=== PATIENT | female | born 1960 | race Caucasian/White ===

== ENCOUNTER 2018-04-23 20:11 | Emergency (ER) | payer MEDICAID, OTHER ==
--- NOTE | 2018-04-23 20:27 | EDPHY ---
H & P Stated Complaint: loose stools since 03/02 Time Seen by Provider: 04/23/18 20:20 HPI/ROS: CHIEF COMPLAINT: Chronic diarrhea HISTORY OF PRESENT ILLNESS: The patient presents the ED with complaints of chronic watery diarrhea for the past 6 weeks. She was seen at [facility]. She had a negative stool culture and ova and parasite analysis. She is still awaiting results of Clostridium difficile colitis. She does have a history of ulcerative colitis which she reports is well controlled with diet. She has not had recent follow-up with Gastroenterology. She denies any vomiting, melena or hematemesis. She did try to take Imodium however was bothered secondary to side effects of the medication. She has been taking Pepto-Bismol without any acute improvement of her symptoms. She denies any fever, dysuria, cough or additional acute complaints. REVIEW OF SYSTEMS: A comprehensive 10 point review of systems is otherwise negative aside from elements mentioned in the history of present illness. Source: Patient - Personal History Current Tetanus/Diphtheria Vaccine: Unsure Current Tetanus Diphtheria and Acellular Pertussis (TDAP): Unsure Tetanus Vaccine Date: < 10 - Medical/Surgical History Hx Asthma: No Hx Chronic Respiratory Disease: No Hx Diabetes: No Hx Cardiac Disease: No Hx Renal Disease: No Hx Cirrhosis: No Hx Alcoholism: No Hx HIV/AIDS: No Hx Splenectomy or Spleen Trauma: No Other PMH: FIBRO M., MIGRAINES, COLITIS, APPY - Social History Smoking Status: Never smoked - Physical Exam Exam: General Appearance: Alert, no distress Eyes: Pupils equal and round no pallor or injection ENT, Mouth: Mucous membranes moist Respiratory: There are no retractions, lungs are clear to auscultation Cardiovascular: Regular rate and rhythm Gastrointestinal: Hyperactive bowel sounds, no focal tenderness Neurological: 5/5 strength all 4 extremities Skin: Warm and dry, no rashes Musculoskeletal: Neck is supple nontender Extremities: symmetrical, full range of motion Constitutional: Initial Vital Signs Temperature (C) 36.6 C 04/23/18 20:18 Heart Rate 97 04/23/18 20:18 Respiratory Rate 16 04/23/18 20:18 Blood Pressure 124/67 H 04/23/18 20:18 O2 Sat (%) 95 04/23/18 20:18 O2 Delivery Mode Room Air Allergies/Adverse Reactions: Penicillins Allergy (Intermediate, Verified 04/23/18 20:18) Hives Home Medications: Medication Instructions Recorded Levothyroxine [Synthroid 112 mcg 112 mcg PO DAILY06 11/27/12 (RX)] Progesterone,Micronized 300 mg PO 11/27/12 [Progesterone] Cholecalciferol (Vitamin D3) 08/11/13 [Vitamin D-3] [place]-3 Fatty Acids [Fish Oil] 300 mg PO 08/11/13 Vitamin B Complex [Vitamin B 08/11/13 Complex (OTC)] Dicyclomine [Bentyl 20 MG (*)] 20 mg PO QID #30 tab 04/23/18 Medical Decision Making ED Course/Re-evaluation: The patient presents the emergency department with complaints of chronic diarrhea. She is afebrile with stable vital signs. The patient's abdominal examination is benign. The patient did received 2 L of normal saline at her request for subjective dehydration. Laboratory studies are unremarkable. Patient was unable to provide a diarrheal sample in the ED. She will be discharged home with a specimen container and a lab slip for a GI pathogen panel. The patient will follow up with Gastroenterology for any ongoing symptoms. She is given the telephone number for Dr. Antonio Linda. Additionally the patient will be given a prescription for Bentyl. Differential Diagnosis: Differential diagnosis considered includes chronic diarrhea, irritable bowel syndrome, colitis, dehydration, metabolic abnormality, renal failure - Data Points Laboratory Results: Laboratory Results 04/23/18 20:28 04/23/18 20:28 04/23/18 04/23/18 20:28 20:28 WBC 7.01 10^3/uL 10^3/uL (3.80-9.50) RBC 4.18 10^6/uL 10^6/uL (4.18-5.33) Hgb 13.0 g/dL g/dL (12.6-16.3) Hct 37.5 % L % (38.0-47.0) MCV 89.7 fL fL (81.5-99.8) MCH 31.1 pg pg (27.9-34.1) MCHC 34.7 g/dL g/dL (32.4-36.7) RDW 13.5 % % (11.5-15.2) Plt Count 261 10^3/uL 10^3/uL (150-400) MPV 9.6 fL fL (8.7-11.7) Neut % (Auto) 53.4 % % (39.3-74.2) Lymph % (Auto) 33.8 % % (15.0-45.0) Reeves % (Auto) 9.7 % % (4.5-13.0) Eos % (Auto) 2.7 % % (0.6-7.6) Baso % (Auto) 0.4 % % (0.3-1.7) Nucleat RBC Rel Count 0.0 % % (0.0-0.2) Absolute Neuts (auto) 3.74 10^3/uL 10^3/uL (1.70-6.50) Absolute Lymphs (auto) 2.37 10^3/uL 10^3/uL (1.00-3.00) Absolute Monos (auto) 0.68 10^3/uL 10^3/uL (0.30-0.80) Absolute Eos (auto) 0.19 10^3/uL 10^3/uL (0.03-0.40) Absolute Basos (auto) 0.03 10^3/uL 10^3/uL (0.02-0.10) Absolute Nucleated RBC 0.00 10^3/uL 10^3/uL (0-0.01) Immature Gran % 0.0 % % (0.0-1.1) Immature Gran # 0.00 10^3/uL 10^3/uL (0.00-0.10) Sodium 137 mEq/L mEq/L (135-145) Potassium 3.6 mEq/L mEq/L (3.3-5.0) Chloride 102 mEq/L mEq/L (97-110) Carbon Dioxide 23 mEq/l mEq/l (22-31) Anion Gap 12 mEq/L mEq/L (8-16) BUN 26 mg/dL H mg/dL (7-23) Creatinine 0.9 mg/dL mg/dL (0.6-1.0) Estimated GFR > 60 Glucose 129 mg/dL H mg/dL (70-100) Calcium 9.6 mg/dL mg/dL (8.5-10.4) Total Bilirubin 0.3 mg/dL mg/dL (0.1-1.4) Conjugated Bilirubin 0.2 mg/dL mg/dL (0.0-0.5) Unconjugated Bilirubin 0.1 mg/dL mg/dL (0.0-1.1) AST 21 IU/L IU/L (14-46) ALT 27 IU/L IU/L (9-52) Alkaline Phosphatase 89 IU/L IU/L (38-126) Total Protein 6.9 g/dL g/dL (6.3-8.2) Albumin 4.4 g/dL g/dL (3.5-5.0) Lipase 175 IU/L IU/L (23-300) Medications Given: Discontinued Medications Sodium Chloride (Ns) 1,000 mls @ 0 mls/hr IV EDNOW ONE; Wide Open PRN Reason: Protocol Stop: 04/23/18 20:38 Last Admin: 04/23/18 20:46 Dose: 1,000 mls Sodium Chloride (Ns) 1,000 mls @ 0 mls/hr IV EDNOW ONE; Wide Open PRN Reason: Protocol Stop: 04/23/18 20:38 Last Admin: 04/23/18 20:46 Dose: 1,000 mls Departure - Departure Disposition: Home, Routine, Self-Care Clinical Impression: Chronic diarrhea Condition: Good Instructions: Chronic Diarrhea (ED) Additional Instructions: 1. Please return to the lab with a stool sample for comprehensive stool testing including C diff. Please be sure to bring the laboratory slip with you. 2. I recommend following up with Gastroenterology for further evaluation of your chronic diarrhea. You have been given the contact number for Dr. Linda on our on-call electronic technologist 3. Please follow up with [facility] to check on the results of your stool tests admitted to the hospital 4. Please try Bentyl as prescribed to see if that improves your symptoms. Referrals: Antonio Linda MD [Medical Doctor] - As per Instructions Prescriptions: Dicyclomine [Bentyl 20 MG (*)] 20 mg PO QID #30 tab
[2018-04-23 20:37] LABS: PLATELET COUNT 261 10^3/uL (150-400)
[2018-04-23] MEDS ORDERED: NS 1,000 ML IV ONE ×2 (20:37)
[2018-04-23 21:18] VITALS: BP 106/94
--- NOTE | 2018-04-29 15:50 | ASMTCMCOM ---
CM Note CM Note Notes: Late Entry from 04/24/18: Pt had been contacted by the fire control technician b re:her test results. CM requested by the supervisor propellant charge loading to reach out to patient and assist w/G[facility] follow-up; this CM faxed referral [facility] 04/24/18. Followed up with pt today and she states she was able to schedule an appointment w/a PA at [facility] on 05/08/18 but she feels she needs to be sooner. Pt requesting CM for another referral but CM explained the ED / on-call person referral process. Pt encouraged to follow up with her PCP Janet Luna at [facility] and request another GI referral. This CM called [facility] and left a voicemail to relay information and request they reach out to the pt to schedule a follow-up appt and possible provide another GI referral; have not heard back from [facility] yet. ---Follow-up 04/29/18: Spoke w/Carolynn at [facility] and relayed pt's concerns and requests; Carolynn states pt had contacted [facility] multiple times yesterday as well. [facility] to follow-up w/pt and assist w/ongoing symptom management and possibly provide another GI referral. CM available for further assistance if needed. Date Signed: 04/29/2018 03:49 PM Electronically Signed By:Mariza La RN
== END 2018-04-23 21:31 | disposition home or self-care (01) ==
DX: B96.29 Other Escherichia coli [E. coli] as the cause of diseases classified elsewhere (principal); K52.9 Noninfective gastroenteritis and colitis, unspecified; E86.9 Volume depletion, unspecified